=== PATIENT | male | born 1980 | race Two or more races ===

== ENCOUNTER 2020-11-25 18:45 | Emergency (ER) | payer OTHER ==
[2020-11-25 19:08] VITALS: BP 113/81; PULSE 86; TEMP 98.3; BMI 24.3
[2020-11-25] MEDS ORDERED: METHOCARBAMOL 500 MG TABLET PO ONE (20:59)
[2020-11-25] MEDS ORDERED: IBUPROFEN 600 MG TABLET (FP) PO ONE ×2 (20:59→21:05)
[2020-11-25] MEDS ORDERED: METHOCARBAMOL 500 MG TABLET ONE (21:05)
== END 2020-11-25 21:09 | disposition home or self-care (01) ==
LOC: JERFT 18:45
DX: M54.2 Cervicalgia (principal); M54.5 Low back pain; V49.50XA Passenger injured in collision with unspecified motor vehicles in traffic accident, initial encounter
CPT/HCPCS: 99283-25

== ENCOUNTER 2023-04-20 20:35 | Observation (INO) | payer OTHER ==
[2023-04-20 22:21] LABS: BASO % 0.3 % (0-2.0); EOS % 0.5 % (0-4.5); HEMATOCRIT 37.9 % (35.4-49); HEMOGLOBIN 12.9 GM/dL (11.7-16.9); LYMPH % 12.7 % (8-40); MCH 29.4 pg (25.7-33.7); MEAN CELL VOLUME 86.5 fl (80-96); MEAN PLT VOLUME 8.4 fl (7.5-11.1); MONO % 8.8 % (3.8-10.2); NEUT % 77.7 % (42.8-82.8); PLATELET COUNT 213 10^3/uL (134-434); RBC 4.39 M/mm3 (4.00-5.60); WHITE BLOOD COUNT 8.1 K/mm3 (4.0-10.0)
[2023-04-20] MEDS ORDERED: ACETAMINOPHEN INJECTION 100 ML IVPB ONE (22:21)
[2023-04-20 22:26] LABS: PH,URINE 6.5 (5.0-8.0); URINE APPEARANCE CLEAR; URINE BILIRUBIN NEGATIVE (NEGATIVE); URINE COLOR YELLOW; URINE GLUCOSE (UA) NEGATIVE (NEGATIVE); URINE KETONE NEGATIVE (NEGATIVE); URINE LEUK ESTERASE NEGATIVE (NEGATIVE); URINE NITRITE NEGATIVE (NEGATIVE); URINE PROTEIN NEGATIVE (NEGATIVE)
[2023-04-20 22:27] LABS: INR 1.07 (0.83-1.09); PROTHROMBIN TIME (PATIENT) 12.4 SEC (9.7-13.0)
[2023-04-20] MEDS: SODIUM CHLORIDE 0.9% 500 ML INFUS.BAG IV ONE (22:29)
[2023-04-20] MEDS: ACETAMINOPHEN 1000 MG/100 ML BAG IVPB ONE (22:30)
[2023-04-20 22:43] LABS: EPI CELLS 1.4 /uL (0-25.1); HYALINE CASTS 0.14 /uL (0-3.1); URINE BACTERIA 0.9 /uL (0-1359); URINE RBC 76.3 /uL (0-23.9); URINE WBC 2.6 /uL (0-25.8)
[2023-04-20 22:47] LABS: POTASSIUM 3.2 mmol/L (3.5-5.1)
[2023-04-20 22:50] LABS: ALBUMIN 2.7 g/dl (3.4-5.0); BLOOD UREA NITROGEN 8.4 mg/dL (7-18); MAGNESIUM 2.1 mg/dL (1.8-2.4)
[2023-04-20 22:53] LABS: CREATININE 0.9 mg/dL (0.55-1.3)
[2023-04-20 22:55] LABS: BILIRUBIN,TOTAL 2.4 mg/dL (0.2-1); TOT PROT 6.6 g/dl (6.4-8.2)
[2023-04-20] MEDS ORDERED: POTASSIUM CHLORIDE TABS 20 MEQ TABLET.ER (FP) PO ONE (23:35)
[2023-04-20] MEDS: POTASSIUM CHLORIDE TABS 20 MEQ TABLET.ER (FP) PO ONE (23:36)
[2023-04-21] MEDS ORDERED: DOCUSATE SODIUM 100 MG CAPSULE (FP) PO PRN (03:09)
[2023-04-21] MEDS: SODIUM CHLORIDE 1,000 ML IV SCH (03:45)
[2023-04-21 05:28] VITALS: BMI 25.3
[2023-04-21 09:40] LABS: BASO % 0.2 % (0-2.0); EOS % 0.6 % (0-4.5); HEMATOCRIT 35.7 % (35.4-49); HEMOGLOBIN 11.9 GM/dL (11.7-16.9); LYMPH % 11.2 % (8-40); MCH 29.2 pg (25.7-33.7); MCHC 33.5 g/dl (32.0-35.9); MEAN CELL VOLUME 87.4 fl (80-96); MEAN PLT VOLUME 8.6 fl (7.5-11.1); MONO % 11.1 % (3.8-10.2); NEUT % 76.9 % (42.8-82.8); PLATELET COUNT 194 10^3/uL (134-434); RBC 4.08 M/mm3 (4.00-5.60); RDW 13.2 % (11.9-15.9); WHITE BLOOD COUNT 8.2 K/mm3 (4.0-10.0)
[2023-04-21 10:15] LABS: POTASSIUM 3.7 mmol/L (3.5-5.1)
[2023-04-21 10:29] LABS: CALCIUM 7.9 mg/dL (8.5-10.1)
[2023-04-21 10:30] LABS: ALBUMIN 2.4 g/dl (3.4-5.0); BLOOD UREA NITROGEN 6.2 mg/dL (7-18)
[2023-04-21 10:34] LABS: BILIRUBIN,TOTAL 2.4 mg/dL (0.2-1); CREATININE 0.7 mg/dL (0.55-1.3); PHOSPHOROUS 2.4 mg/dL (2.5-4.9)
[2023-04-21 10:35] LABS: TOT PROT 5.8 g/dl (6.4-8.2)
[2023-04-21] MEDS ORDERED: POLYETHYLENE GLYCOL (HEALTHYLAX) 3350 17 GM PACKET PO SCH (11:00)
[2023-04-21] MEDS: LACTATED RINGERS SOLUTION 1,000 ML/1,000 ML INFUS.BAG IV SCH (11:13)
[2023-04-21 15:15] VITALS: RESP 18
[2023-04-21] MEDS: ACETAMINOPHEN 325 MG TABLET (FP) PO PRN (16:58)
[2023-04-21 20:09] LABS: METHADONE, UR NEGATIVE (NEGATIVE); PHENCYCLIDINE,URINE NEGATIVE (NEGATIVE); URINE AMPHETAMINES NEGATIVE (NEGATIVE)
[2023-04-21 20:10] LABS: OPIATES, URI NEGATIVE (NEGATIVE)
[2023-04-21 20:34] LABS: COCAINE, UR NEGATIVE (NEGATIVE); URINE BARBITURATES NEGATIVE (NEGATIVE); URINE BENZODIAZEPINES NEGATIVE (NEGATIVE)
[2023-04-21] MEDS: POLYETHYLENE GLYCOL (HEALTHYLAX) 3350 17 GM PACKET PO ONE (22:41)
[2023-04-21] MEDS: ACETAMINOPHEN 1000 MG/100 ML BAG IVPB ONE (23:27)
[2023-04-22 05:49] VITALS: TEMP 70
[2023-04-22 08:40] LABS: BASO % 0.1 % (0-2.0); EOS % 0.8 % (0-4.5); HEMATOCRIT 34.4 % (35.4-49); HEMOGLOBIN 11.8 GM/dL (11.7-16.9); LYMPH % 12.1 % (8-40); MCHC 34.4 g/dl (32.0-35.9); MEAN CELL VOLUME 87.1 fl (80-96); MEAN PLT VOLUME 8.3 fl (7.5-11.1); PLATELET COUNT 219 10^3/uL (134-434); RBC 3.95 M/mm3 (4.00-5.60); RDW 13.3 % (11.9-15.9); WHITE BLOOD COUNT 7.5 K/mm3 (4.0-10.0)
[2023-04-22 08:50] LABS: POTASSIUM 3.6 mmol/L (3.5-5.1)
[2023-04-22 08:57] LABS: CALCIUM 8.9 mg/dL (8.5-10.1); MAGNESIUM 2.2 mg/dL (1.8-2.4)
[2023-04-22 08:58] LABS: ALBUMIN 2.4 g/dl (3.4-5.0); BLOOD UREA NITROGEN 4.8 mg/dL (7-18); CREATININE 0.6 mg/dL (0.55-1.3)
[2023-04-22 09:00] LABS: TOT PROT 6.2 g/dl (6.4-8.2)
[2023-04-22 09:02] LABS: BILIRUBIN,TOTAL 1.8 mg/dL (0.2-1)
[2023-04-22] MEDS: POTASSIUM CHLORIDE TABS 20 MEQ TABLET.ER (FP) PO ONE (09:39)
[2023-04-22] MEDS: LACTATED RINGERS SOLUTION 1,000 ML/1,000 ML INFUS.BAG IV STA (09:41)
[2023-04-22 09:46] VITALS: BP 120/85; PULSE 72
== END 2023-04-22 13:03 | disposition home or self-care (01) ==
LOC: JER 20:35 → JERBED 04-21 02:03 → J8W 04-21 04:02
PROVIDERS: ADMIT Internal Medicine; ATTEND Nurse Practitioner Acute Care
PROC: 3E033NZ Introduction of Analgesics, Hypnotics, Sedatives into Peripheral Vein, Percutaneous Approach (ICD-10-PCS; principal; 2023-04-21)
DX: K85.90 Acute pancreatitis without necrosis or infection, unspecified (principal); R94.5 Abnormal results of liver function studies; Z29.89 Encounter for other specified prophylactic measures; F10.10 Alcohol abuse, uncomplicated
CPT/HCPCS: 0241U-QW; 36415; 74177-TC; 74181-TC; 76705-TC; 80053; 80061; 80307; 81003; 82150; 82248; 83605; 83690; 83735; 84100; 84478; 85025; 85610; 85730; 86140; 86704; 86803; 86850; 86900; 86901; 87086; 87340; 87517; 96361; 96374; 96375; 96376; 99285-25; G0378; J0131; Q9967